=== PATIENT | male | born 1945 | race African-American/Black ===

== ENCOUNTER 2016-10-20 12:12 | Inpatient (IN) | payer OTHER, BC ==
[~2016-10-20] VITALS: Ht 175.3 cm; Wt 92.1 kg
[~2016-10-20 12:12] MED LIST: ADULT LOW DOSE81 M1 PO; ALLOPURINOL100 MG PO; AMIODARONE HCL200 MG PO; AMOX TR-K CLV1 EAC3 PO; ANTABUSE250 MG PO; ASPIR 8181 M1 PO; ASPIRIN325 MG PO; ASPIRIN81 M1 PO; ATIVAN0.5 MG PO; CARDIZEM CD,CA180 MG PO; CARDIZEM CD120 M1 PO; CARDIZEM CD180 MG PO; CELEXA10 MG PO; CELEXA20 MG PO; CITALOPRAM HBR10 MG PO; CLOPIDOGREL75 MG PO; Cozaar PO; DIOVAN HCT 11 TABLET PO; DIOVAN HCT 1601 EACH PO; ELIQUIS; ELIQUIS5 MG PO; FLEXERIL10 MG PO; FORTAMET500 MG PO; FUROSEMIDE40 MG PO; GLIPIZIDE ER2.5 MG PO; GLUCOPHAGE500 MG PO; GLUCOTROL XL5 MG PO; INDOCIN50 MG PO; K-DUR20 MEQ PO; K-Dur PO; KETOCONAZOLE120 ML TP; KLOR-CON M2020 MEQ PO; LABETALOL HCL200 MG PO; LASIX20 MG PO; LASIX40 MG PO; LEVETIRACETAM500 MG PO; LIPITOR10 MG PO; LISINOPRIL10 MG PO; LISINOPRIL2.5 MG PO; LISINOPRIL20 MG PO; LITE COAT ASPI325 M1 PO; LOPRESSOR25 MG PO; LOPRESSOR50 MG PO; LORAZEPAM0.5 MG PO; Lasix PO; Lopressor PO; METFORMIN HCL500 M1 PO; METFORMIN HCL500 MG PO; METOLAZONE2.5 MG PO; METOPROLOL TART50 MG PO; MICRO-K10 ME2 PO; NORVASC5 MG PO; Norvasc PO; POTASSIUM CHLO10 ME3 PO; ROCALTROL0.25 MCG PO; TOPROL XL50 MG PO; VICODIN,LORT1 TABLET PO; ZESTRIL2.5 MG PO; ZESTRIL20 MG PO; ZITHROMAX Z-PA250 MG PO; Zyloprim PO
[2016-10-20 12:35] LABS: POINT-OF-CARE METER ID UU13113778
[2016-10-20 12:50] LABS: ADD MIUA? YES; BILIRUBIN NEGATIVE; BLOOD NEGATIVE; COLOR YELLOW ((YELLOW)); GLUCOSE (STRIP) NEGATIVE; KETONES 5; LEUKOCYTES NEGATIVE; NITRITE NEGATIVE; PROTEIN (STRIP) NEGATIVE
[2016-10-20 13:04] LABS: BACTERIA RARE /HPF; EPITHELIAL CELLS RARE /HPF; HYALINE CASTS 30-40 /LPF; MUCUS TRACE /LPF; RED BLOOD CELLS NONE SEEN /HPF (0-5); UCUL ADDED? NO; WHITE BLOOD CELLS 0-5 /HPF (0-5)
[2016-10-20 13:13] LABS: HEMATOCRIT 43.5 % (38.0-50.0); MCH 29.8 PG (29.0-34.0); MCHC 32.9 G/DL (30.0-36.0); MCV 90.6 FL (86-99); MEAN PLAT.VOLUME 11.6 uM^3 (9.0-12.4); PLATELET COUNT 223 K/uL (156-360); RBC DIS.WIDTH-CV 18.4 % (11.8-14.6); RBC DIS.WIDTH-SD 60.5 % (39-53); WHITE BLOOD COUNT 5.7 K/uL (4.1-10.2)
[2016-10-20 13:19] LABS: CHLORIDE 95 mEq/L (99-109); POTASSIUM 3.9 mEq/L (3.7-5.4); SODIUM 140 mEq/L (136-147)
[2016-10-20 13:21] LABS: GLUCOSE 71 mg/dL (70-99)
[2016-10-20 13:22] LABS: ANION GAP 18 MEQ/L (2-14)
[2016-10-20 13:23] LABS: TOTAL BILIRUBIN 2.5 mg/dL (0.0-1.0)
[2016-10-20 13:24] LABS: ALKALINE PHOSPHATASE 116 IU/L (3-129)
[2016-10-20 13:25] LABS: GFR ESTIMATE (CALCULATED) 33 mL/min/
[2016-10-20 13:26] LABS: UREA NITROGEN (BUN) 33 mg/dL (9-23)
[2016-10-20 13:44] LABS: DIGOXIN 2.4 ng/mL (0.8-2.0)
[2016-10-20 14:02] LABS: INTER. NORMALIZED RATIO 1.5; PTT 34.8 (25-32)
[2016-10-20 14:10] LABS: LIPASE 20 U/L (1.0-51.0)
[2016-10-20 14:13] LABS: TROP-I INTERPRETATION POSITIVE; TROPONIN-I 0.62 ng/mL (0.0-0.30)
[2016-10-20] MEDS ORDERED: DIGITEK125 MC2 PO (15:33)
[2016-10-20] MEDS ORDERED: K-DUR20 MEQ PO (15:33)
[2016-10-20] MEDS ORDERED: METOLAZONE5 MG PO (15:34)
[2016-10-20] MEDS ORDERED: AMIODARONE HCL200 MG PO (15:34)
[2016-10-20] MEDS ORDERED: PLAVIX75 MG PO (15:35)
[2016-10-20 17:38] VITALS: BP 128/70
[2016-10-20 19:06] LABS: TROP-I INTERPRETATION POSITIVE; TROPONIN-I 0.73 ng/mL (0.0-0.30)
[2016-10-20 20:45] VITALS: BP 100/55
[2016-10-20 23:33] VITALS: BP 105/65
[2016-10-21 01:22] LABS: TROP-I INTERPRETATION POSITIVE; TROPONIN-I 0.64 ng/mL (0.0-0.30)
[2016-10-21 05:07] VITALS: BP 95/51
[2016-10-21 06:44] LABS: HEMATOCRIT 38.9 % (38.0-50.0); MCH 29.5 PG (29.0-34.0); MCHC 32.9 G/DL (30.0-36.0); MCV 89.6 FL (86-99); MEAN PLAT.VOLUME 11.3 uM^3 (9.0-12.4); PLATELET COUNT 183 K/uL (156-360); RBC DIS.WIDTH-CV 18.1 % (11.8-14.6); RBC DIS.WIDTH-SD 60.5 % (39-53); RED BLOOD COUNT 4.34 M/uL (4.00-5.50); WHITE BLOOD COUNT 6.1 K/uL (4.1-10.2)
[2016-10-21 07:08] LABS: ALKALINE PHOSPHATASE 93 IU/L (3-129); ANION GAP 10 MEQ/L (2-14); CHLORIDE 96 MEQ/L (99-109); GFR ESTIMATE (CALCULATED) 36 mL/min/; GLUCOSE 77 mg/dL (70-99); POTASSIUM 3.8 MEQ/L (3.7-5.4); SAMPLE HEMOLYSIS CHECK 0; SAMPLE ICTERIC CHECK 0; SAMPLE LIPEMIA CHECK 0; SODIUM 136 MEQ/L (136-147); TOTAL BILIRUBIN 2.1 MG/DL (0.0-1.0); UREA NITROGEN (BUN) 31 mg/dL (9-23)
[2016-10-21 07:28] VITALS: BP 102/58
[2016-10-21 07:38] LABS: POINT-OF-CARE METER ID UU13113698
[2016-10-21 09:37] LABS: Estimated Average Glucose 114 mg/dL (70-123); HEMOGLOBIN A1c (GLYCOHEMOGLOB) 5.6 % HGB (Below 5.7)
[2016-10-21] MEDS ORDERED: METOPROLOL TART50 MG PO (11:30)
[2016-10-21] MEDS ORDERED: DILTIAZEM 24HR120 MG PO (11:33)
[2016-10-21 11:40] LABS: POINT-OF-CARE METER ID UU13113698
[2016-10-21 12:00] VITALS: BP 115/68
[2016-10-21 16:06] VITALS: BP 107/63
[2016-10-21 20:00] VITALS: BP 98/56
[2016-10-21 23:55] VITALS: BP 96/51
[2016-10-22 04:00] VITALS: BP 99/53
[2016-10-22 05:52] LABS: EOSINOPHIL (%) 2.5 % (0-5); EOSINOPHIL COUNT 0.2 K/uL (0-0.3); HEMATOCRIT 36.2 % (38.0-50.0); IMMATURE GRANULOCYTE (%) 0.3 % (0.0-0.7); INSTRUMENT ABS NEUTROPHIL CT 4.1 K/uL; LYMPHOCYTE COUNT 1.5 K/uL (1.0-2.8); MCH 29.5 PG (29.0-34.0); MCHC 32.9 G/DL (30.0-36.0); MCV 89.6 FL (86-99); MEAN PLAT.VOLUME 12.4 uM^3 (9.0-12.4); MONOCYTE (%) 8.7 % (3-12); MONOCYTE COUNT 0.6 K/uL (0-0.8); NEUTROPHIL (%) 64.2 % (45-76); NEUTROPHIL COUNT 4.1 K/uL (1.8-6.4); PLATELET COUNT 191 K/uL (156-360); RBC DIS.WIDTH-CV 18.1 % (11.8-14.6); RBC DIS.WIDTH-SD 59.6 % (39-53); RED BLOOD COUNT 4.04 M/uL (4.00-5.50); WHITE BLOOD COUNT 6.3 K/uL (4.1-10.2)
[2016-10-22 06:17] LABS: ANION GAP 10 MEQ/L (2-14); CHLORIDE 94 MEQ/L (99-109); GFR ESTIMATE (CALCULATED) 34 mL/min/; GLUCOSE 87 mg/dL (70-99); SAMPLE HEMOLYSIS CHECK 0; SAMPLE ICTERIC CHECK 0; SAMPLE LIPEMIA CHECK 0; SODIUM 136 MEQ/L (136-147); UREA NITROGEN (BUN) 35 mg/dL (9-23)
[2016-10-22 07:10] VITALS: BP 109/65
[2016-10-22 12:02] VITALS: BP 101/66
[2016-10-22 12:59] LABS: DIGOXIN 2.3 ng/mL (0.8-2.0)
[2016-10-22 15:58] VITALS: BP 100/66
[2016-10-22 20:45] VITALS: BP 101/60
[2016-10-22 20:59] LABS: POINT-OF-CARE METER ID UU14174216
[2016-10-22 23:23] VITALS: BP 100/67
[2016-10-23 04:00] VITALS: BP 107/66
[2016-10-23 06:41] LABS: EOSINOPHIL COUNT 0.2 K/uL (0-0.3); IMMATURE GRANULOCYTE (%) 0.3 % (0.0-0.7); INSTRUMENT ABS NEUTROPHIL CT 4.1 K/uL; LYMPHOCYTE COUNT 1.1 K/uL (1.0-2.8); MCH 29.9 PG (29.0-34.0); MCHC 33.4 G/DL (30.0-36.0); MCV 89.5 FL (86-99); MEAN PLAT.VOLUME 12.6 uM^3 (9.0-12.4); MONOCYTE (%) 8.2 % (3-12); MONOCYTE COUNT 0.5 K/uL (0-0.8); NEUTROPHIL COUNT 4.1 K/uL (1.8-6.4); PLATELET COUNT 196 K/uL (156-360); RBC DIS.WIDTH-CV 18.2 % (11.8-14.6); RBC DIS.WIDTH-SD 59.6 % (39-53); RED BLOOD COUNT 3.91 M/uL (4.00-5.50)
[2016-10-23 07:01] LABS: ANION GAP 8 MEQ/L (2-14); CHLORIDE 96 MEQ/L (99-109); GFR ESTIMATE (CALCULATED) 33 mL/min/; GLUCOSE 86 mg/dL (70-99); POTASSIUM 3.8 MEQ/L (3.7-5.4); SAMPLE HEMOLYSIS CHECK 0; SAMPLE ICTERIC CHECK 0; SAMPLE LIPEMIA CHECK 0; SODIUM 136 MEQ/L (136-147); UREA NITROGEN (BUN) 36 mg/dL (9-23)
[2016-10-23 07:34] VITALS: BP 98/54
[2016-10-23 07:37] LABS: DIGOXIN 2.1 ng/mL (0.8-2.0)
[2016-10-23 11:36] VITALS: BP 92/64
[2016-10-23 16:19] VITALS: BP 104/57
[2016-10-23 20:28] VITALS: BP 002/65; BP 102/56
[2016-10-23 20:46] LABS: POINT-OF-CARE METER ID UU14174216
[2016-10-23 21:55] VITALS: BP 97/62
[2016-10-24] VITALS (7 sets, daily range): BP systolic 98–105; BP diastolic 59–70
[2016-10-24 07:13] LABS: EOSINOPHIL (%) 2.5 % (0-5); EOSINOPHIL COUNT 0.2 K/uL (0-0.3); HEMATOCRIT 35.3 % (38.0-50.0); IMMATURE GRANULOCYTE (%) 0.2 % (0.0-0.7); INSTRUMENT ABS NEUTROPHIL CT 4.4 K/uL; LYMPHOCYTE COUNT 1.2 K/uL (1.0-2.8); MCH 29.7 PG (29.0-34.0); MCHC 33.1 G/DL (30.0-36.0); MCV 89.6 FL (86-99); MEAN PLAT.VOLUME 12.1 uM^3 (9.0-12.4); MONOCYTE (%) 8.6 % (3-12); MONOCYTE COUNT 0.6 K/uL (0-0.8); NEUTROPHIL (%) 68.9 % (45-76); NEUTROPHIL COUNT 4.4 K/uL (1.8-6.4); PLATELET COUNT 169 K/uL (156-360); RBC DIS.WIDTH-CV 18.2 % (11.8-14.6); RBC DIS.WIDTH-SD 59.3 % (39-53); RED BLOOD COUNT 3.94 M/uL (4.00-5.50); WHITE BLOOD COUNT 6.4 K/uL (4.1-10.2)
[2016-10-24 07:37] LABS: POINT-OF-CARE METER ID UU13113698
[2016-10-24 09:05] LABS: CHLORIDE 97 mEq/L (99-109); POTASSIUM 4.2 mEq/L (3.7-5.4); SODIUM 136 mEq/L (136-147)
[2016-10-24 09:07] LABS: GLUCOSE 83 mg/dL (70-99)
[2016-10-24 09:08] LABS: ANION GAP 10 MEQ/L (2-14)
[2016-10-24 09:10] LABS: GFR ESTIMATE (CALCULATED) 30 mL/min/
[2016-10-24 09:11] LABS: UREA NITROGEN (BUN) 41 mg/dL (9-23)
[2016-10-24 12:08] LABS: POINT-OF-CARE METER ID UU13113698
[2016-10-24 16:14] LABS: POINT-OF-CARE METER ID UU13113698
[2016-10-24 22:28] LABS: POINT-OF-CARE METER ID UU13113698
[2016-10-25 04:50] VITALS: BP 107/64
[2016-10-25 07:12] LABS: EOSINOPHIL (%) 2.1 % (0-5); EOSINOPHIL COUNT 0.1 K/uL (0-0.3); HEMATOCRIT 36.6 % (38.0-50.0); IMMATURE GRANULOCYTE (%) 0.5 % (0.0-0.7); INSTRUMENT ABS NEUTROPHIL CT 4.3 K/uL; LYMPHOCYTE COUNT 1.2 K/uL (1.0-2.8); MCHC 33.3 G/DL (30.0-36.0); MCV 89.9 FL (86-99); MEAN PLAT.VOLUME 13.2 uM^3 (9.0-12.4); MONOCYTE (%) 9.1 % (3-12); MONOCYTE COUNT 0.6 K/uL (0-0.8); NEUTROPHIL (%) 68.4 % (45-76); NEUTROPHIL COUNT 4.3 K/uL (1.8-6.4); PLATELET COUNT 182 K/uL (156-360); RBC DIS.WIDTH-CV 18.4 % (11.8-14.6); RBC DIS.WIDTH-SD 60.1 % (39-53); RED BLOOD COUNT 4.07 M/uL (4.00-5.50); WHITE BLOOD COUNT 6.3 K/uL (4.1-10.2)
[2016-10-25 07:30] LABS: ANION GAP 9 MEQ/L (2-14); CHLORIDE 99 MEQ/L (99-109); GFR ESTIMATE (CALCULATED) 33 mL/min/; GLUCOSE 74 mg/dL (70-99); POTASSIUM 4.7 MEQ/L (3.7-5.4); SAMPLE HEMOLYSIS CHECK 0; SAMPLE ICTERIC CHECK 0; SAMPLE LIPEMIA CHECK 0; SODIUM 138 MEQ/L (136-147); UREA NITROGEN (BUN) 40 mg/dL (9-23)
[2016-10-25 09:17] VITALS: BP 115/70
[2016-10-25 12:11] LABS: POINT-OF-CARE METER ID UU13113698; POINT-OF-CARE USER ID 606021404
[2016-10-25 12:30] VITALS: BP 108/67
[2016-10-25 16:14] LABS: POINT-OF-CARE METER ID UU13113698; POINT-OF-CARE USER ID 606021404
[2016-10-25 16:30] VITALS: BP 107/68
[2016-10-25 20:42] VITALS: BP 121/76
[2016-10-25 21:46] LABS: POINT-OF-CARE METER ID UU13113698
[2016-10-26 00:52] VITALS: BP 126/78
[2016-10-26 04:39] VITALS: BP 104/61
[2016-10-26 05:37] LABS: EOSINOPHIL COUNT 0.1 K/uL (0-0.3); HEMATOCRIT 35.5 % (38.0-50.0); IMMATURE GRANULOCYTE (%) 0.3 % (0.0-0.7); INSTRUMENT ABS NEUTROPHIL CT 4.6 K/uL; LYMPHOCYTE COUNT 1.3 K/uL (1.0-2.8); MCH 30.2 PG (29.0-34.0); MCHC 33.8 G/DL (30.0-36.0); MCV 89.4 FL (86-99); MEAN PLAT.VOLUME 12.7 uM^3 (9.0-12.4); MONOCYTE (%) 7.4 % (3-12); MONOCYTE COUNT 0.5 K/uL (0-0.8); NEUTROPHIL (%) 70.2 % (45-76); NEUTROPHIL COUNT 4.6 K/uL (1.8-6.4); PLATELET COUNT 174 K/uL (156-360); RBC DIS.WIDTH-CV 18.3 % (11.8-14.6); RBC DIS.WIDTH-SD 59.9 % (39-53); RED BLOOD COUNT 3.97 M/uL (4.00-5.50); WHITE BLOOD COUNT 6.5 K/uL (4.1-10.2)
[2016-10-26 07:24] LABS: ANION GAP 9 MEQ/L (2-14); CHLORIDE 100 MEQ/L (99-109); GFR ESTIMATE (CALCULATED) 34 mL/min/; GLUCOSE 84 mg/dL (70-99); POTASSIUM 4.7 MEQ/L (3.7-5.4); SAMPLE HEMOLYSIS CHECK 0; SAMPLE ICTERIC CHECK 0; SAMPLE LIPEMIA CHECK 0; SODIUM 137 MEQ/L (136-147); UREA NITROGEN (BUN) 42 mg/dL (9-23)
[2016-10-26 07:40] LABS: DIGOXIN 1.5 ng/mL (0.8-2.0)
[2016-10-26 07:47] VITALS: BP 123/72
[2016-10-26 08:21] LABS: POINT-OF-CARE METER ID UU13113698
[2016-10-26 11:40] VITALS: BP 131/80
[2016-10-26 13:07] LABS: POINT-OF-CARE METER ID UU13113698
[2016-10-26 15:47] VITALS: BP 130/79
[2016-10-26 17:56] LABS: POINT-OF-CARE METER ID UU13113698
[2016-10-26 19:45] VITALS: BP 112/70
[2016-10-26 21:45] LABS: POINT-OF-CARE METER ID UU13113698
[2016-10-27] VITALS: BP 92/50
[2016-10-27 04:00] VITALS: BP 101/60
[2016-10-27 07:32] LABS: HEMATOCRIT 34.6 % (38.0-50.0); MCH 29.8 PG (29.0-34.0); MCHC 33.2 G/DL (30.0-36.0); MCV 89.6 FL (86-99); MEAN PLAT.VOLUME 12.5 uM^3 (9.0-12.4); PLATELET COUNT 176 K/uL (156-360); RBC DIS.WIDTH-CV 18.5 % (11.8-14.6); RBC DIS.WIDTH-SD 60.2 % (39-53); RED BLOOD COUNT 3.86 M/uL (4.00-5.50); WHITE BLOOD COUNT 6.5 K/uL (4.1-10.2)
[2016-10-27 07:38] LABS: ANION GAP 9 MEQ/L (2-14); CHLORIDE 102 MEQ/L (99-109); GFR ESTIMATE (CALCULATED) 38 mL/min/; GLUCOSE 78 mg/dL (70-99); POTASSIUM 5.2 MEQ/L (3.7-5.4); SAMPLE HEMOLYSIS CHECK 0; SAMPLE ICTERIC CHECK 0; SAMPLE LIPEMIA CHECK 0; SODIUM 139 MEQ/L (136-147); UREA NITROGEN (BUN) 42 mg/dL (9-23)
[2016-10-27 08:13] LABS: POINT-OF-CARE METER ID UU13113807
[2016-10-27 08:25] VITALS: BP 108/70
[2016-10-27] MEDS ORDERED: ASPIR-LOW81 MG PO (09:59)
[2016-10-27 13:11] VITALS: BP 99/58
[2016-10-27 13:16] LABS: POINT-OF-CARE METER ID UU13113807
== END 2016-10-27 14:18 | disposition home or self-care (01) | DRG 683 ==
LOC: EME 12:12 → EDOF 15:30 → 4EAST 15:30 → 4SOUTH 10-23 21:43
PROVIDERS: Hospitalist; Internal Medicine; Nurse Practitioner Family; Physician Assistant; Physician Assistant Medical
DX: N17.9 Acute kidney failure, unspecified (principal); E86.0 Dehydration; I42.8 Other cardiomyopathies; F01.50 Vascular dementia, unspecified severity, without behavioral disturbance, psychotic disturbance, mood disturbance, and anxiety; E11.22 Type 2 diabetes mellitus with diabetic chronic kidney disease; I12.9 Hypertensive chronic kidney disease with stage 1 through stage 4 chronic kidney disease, or unspecified chronic kidney disease; I25.10 Atherosclerotic heart disease of native coronary artery without angina pectoris; R62.7 Adult failure to thrive; I48.91 Unspecified atrial fibrillation; E78.5 Hyperlipidemia, unspecified; E86.1 Hypovolemia; N18.9 Chronic kidney disease, unspecified; I50.9 Heart failure, unspecified; F32.9 Major depressive disorder, single episode, unspecified; I25.2 Old myocardial infarction; R79.89 Other specified abnormal findings of blood chemistry; Z86.73 Personal history of transient ischemic attack (TIA), and cerebral infarction without residual deficits
CPT/HCPCS: 71020; 80048; 80053; 80162; 81003; 82948; 83036; 83690; 84484; 85025; 85027; 85610; 85730; 93005; 93306; 99281; 99285; J1815; J2405; J7030

== ENCOUNTER 2016-11-22 09:33 | Inpatient (IN) | payer OTHER, BC ==
[2016-11-22] VITALS (8 sets, daily range): BP systolic 90–105; BP diastolic 62–78
[~2016-11-22] VITALS: Ht 170.2 cm; Wt 95.4 kg
[~2016-11-22 09:33] MED LIST changes: +ASPIR-LOW81 MG PO; +DIGITEK125 MC2 PO; +DILTIAZEM 24HR120 MG PO; +METOLAZONE5 MG PO; +PLAVIX75 MG PO
[2016-11-22 10:21] LABS: ANION GAP 21 MEQ/L (2-14); CHLORIDE 107 mEq/L (99-109); CREATININE 5.6 mg/dL (0.6-1.3); GLUCOSE 72 mg/dL (70-99); ISTAT DEVICE 359068; POTASSIUM > 6.0 mEq/L (3.7-5.4); SODIUM 135 mEq/L (136-147); UREA NITROGEN (BUN) 74 mg/dL (9-23)
[2016-11-22 10:43] LABS: EOSINOPHIL (%) 0 % (0-5); HEMATOCRIT 39.9 % (38.0-50.0); IMMATURE GRANULOCYTE (%) 0.5 % (0.0-0.7); IMMATURE GRANULOCYTE COUNT 0.1 K/uL; INSTRUMENT ABS NEUTROPHIL CT 8.1 K/uL; LYMPHOCYTE COUNT 0.8 K/uL (1.0-2.8); MCH 30.9 PG (29.0-34.0); MCHC 34.3 G/DL (30.0-36.0); MCV 90.1 FL (86-99); MONOCYTE (%) 5.9 % (3-12); MONOCYTE COUNT 0.6 K/uL (0-0.8); NEUTROPHIL (%) 85.1 % (45-76); NEUTROPHIL COUNT 8.1 K/uL (1.8-6.4); NRBC (%) 0.7 /100 WBC (0-0); RBC DIS.WIDTH-CV 18.8 % (11.8-14.6); RBC DIS.WIDTH-SD 60.7 % (39-53); RED BLOOD COUNT 4.43 M/uL (4.00-5.50)
[2016-11-22 10:44] LABS: WHITE BLOOD COUNT 9.5 K/uL (4.1-10.2)
[2016-11-22 10:45] LABS: CHLORIDE 106 mEq/L (99-109); SODIUM 136 mEq/L (136-147)
[2016-11-22 10:48] LABS: GLUCOSE 72 mg/dL (70-99)
[2016-11-22 10:49] LABS: ANION GAP 18 MEQ/L (2-14); TOTAL BILIRUBIN 5.8 mg/dL (0.0-1.0)
[2016-11-22 10:51] LABS: ALKALINE PHOSPHATASE 171 IU/L (3-129); GFR ESTIMATE (CALCULATED) 14 mL/min/
[2016-11-22 10:52] LABS: UREA NITROGEN (BUN) 69 mg/dL (9-23)
[2016-11-22 11:00] LABS: DIGOXIN < 0.3 ng/mL (0.8-2.0); POTASSIUM 7.4 mEq/L (3.7-5.4)
[2016-11-22 11:03] LABS: TROP-I INTERPRETATION POSITIVE; TROPONIN-I 0.64 ng/mL (0.0-0.30)
[2016-11-22 11:50] LABS: PLATELET COUNT 201 K/uL (156-360)
[2016-11-22 11:53] LABS: MEAN PLAT.VOLUME 10.5 uM^3 (9.0-12.4)
[2016-11-22 12:10] LABS: PROTHROMBIN TIME 42.2 (9.2-11.2); PTT 42.6 (25-32)
[2016-11-22] MEDS ORDERED: LO-DOSE ASPIRIN81 M2 PO (12:42)
[2016-11-22] MEDS ORDERED: NEPHRO-VITE,1 TABLET PO (12:43)
[2016-11-22] MEDS ORDERED: WELLBUTRIN XL150 MG PO (12:44)
[2016-11-22] MEDS ORDERED: VITAMIN D2000 UNI1 PO (12:44)
[2016-11-22 20:09] LABS: INTER. NORMALIZED RATIO 3.7; PROTHROMBIN TIME 39.2 (9.2-11.2); PTT 49.2 (25-32)
[2016-11-22 20:13] LABS: POINT-OF-CARE METER ID UU14162636
[2016-11-22 20:24] LABS: METH RESISTANT S AUREUS PCR POSITIVE (NEGATIVE)
[2016-11-22 20:26] LABS: PROBE CHECK PASS
[2016-11-22 21:42] LABS: ANION GAP 12 MEQ/L (2-14); CHLORIDE 101 MEQ/L (99-109); POTASSIUM 5.3 MEQ/L (3.7-5.4); SAMPLE HEMOLYSIS CHECK 0; SAMPLE ICTERIC CHECK 1; SAMPLE LIPEMIA CHECK 0; SODIUM 136 MEQ/L (136-147)
[2016-11-22 21:47] LABS: UREA NITROGEN (BUN) 48 mg/dL (9-23)
[2016-11-22 22:17] LABS: GLUCOSE 91 mg/dL (70-99)
[2016-11-22 22:18] LABS: GFR ESTIMATE (CALCULATED) 20 mL/min/
[2016-11-23] VITALS (24 sets, daily range): BP systolic 82–109; BP diastolic 54–81
[2016-11-23 06:21] LABS: EOSINOPHIL (%) 0.4 % (0-5); HEMATOCRIT 31.2 % (38.0-50.0); IMMATURE GRANULOCYTE (%) 0.4 % (0.0-0.7); INSTRUMENT ABS NEUTROPHIL CT 6.2 K/uL; LYMPHOCYTE COUNT 0.9 K/uL (1.0-2.8); MCH 30.2 PG (29.0-34.0); MCHC 34.3 G/DL (30.0-36.0); MCV 88.1 FL (86-99); MEAN PLAT.VOLUME 11.1 uM^3 (9.0-12.4); MONOCYTE (%) 5.7 % (3-12); MONOCYTE COUNT 0.4 K/uL (0-0.8); NEUTROPHIL (%) 81.8 % (45-76); NEUTROPHIL COUNT 6.2 K/uL (1.8-6.4); NRBC (%) 0.3 /100 WBC (0-0); PLATELET COUNT 198 K/uL (156-360); RBC DIS.WIDTH-CV 18.5 % (11.8-14.6); RBC DIS.WIDTH-SD 58.3 % (39-53); WHITE BLOOD COUNT 7.6 K/uL (4.1-10.2)
[2016-11-23 06:22] LABS: ANION GAP 12 MEQ/L (2-14); CHLORIDE 101 MEQ/L (99-109); GFR ESTIMATE (CALCULATED) 18 mL/min/; GLUCOSE 78 mg/dL (70-99); POTASSIUM 5.1 MEQ/L (3.7-5.4); SAMPLE HEMOLYSIS CHECK 0; SAMPLE ICTERIC CHECK 1; SAMPLE LIPEMIA CHECK 0; SODIUM 138 MEQ/L (136-147); UREA NITROGEN (BUN) 52 mg/dL (9-23)
[2016-11-23 06:36] LABS: RED BLOOD COUNT 3.54 M/uL (4.00-5.50)
[2016-11-23 08:20] LABS: POINT-OF-CARE METER ID UU14174217
[2016-11-23 09:58] LABS: ALKALINE PHOSPHATASE 133 IU/L (3-129)
[2016-11-23 10:06] LABS: ANTI-HEPATITIS B CORE (TOTAL) Nonreactive; HBCT INDEX 0.04
[2016-11-23 10:14] LABS: AHBS INDEX 0.15; HEPATITIS B SURFACE ANTIBODY Nonreactive; HPCA INDEX 0.08
[2016-11-23 15:23] LABS: POINT-OF-CARE METER ID UU14174217
[2016-11-23 22:56] LABS: POINT-OF-CARE METER ID UU14174217
[2016-11-24] VITALS (20 sets, daily range): BP systolic 82–105; BP diastolic 58–75
[2016-11-24 07:05] LABS: EOSINOPHIL (%) 0.6 % (0-5); HEMATOCRIT 30.7 % (38.0-50.0); IMMATURE GRANULOCYTE (%) 0.5 % (0.0-0.7); INSTRUMENT ABS NEUTROPHIL CT 5.4 K/uL; LYMPHOCYTE COUNT 0.7 K/uL (1.0-2.8); MCH 29.9 PG (29.0-34.0); MCHC 33.2 G/DL (30.0-36.0); MEAN PLAT.VOLUME 10.6 uM^3 (9.0-12.4); MONOCYTE (%) 6.2 % (3-12); MONOCYTE COUNT 0.4 K/uL (0-0.8); NEUTROPHIL (%) 82.4 % (45-76); NEUTROPHIL COUNT 5.4 K/uL (1.8-6.4); NRBC (%) 0.3 /100 WBC (0-0); PLATELET COUNT 176 K/uL (156-360); RBC DIS.WIDTH-CV 18.7 % (11.8-14.6); RBC DIS.WIDTH-SD 61.1 % (39-53); RED BLOOD COUNT 3.41 M/uL (4.00-5.50); WHITE BLOOD COUNT 6.6 K/uL (4.1-10.2)
[2016-11-24 07:17] LABS: ANION GAP 13 MEQ/L (2-14); CHLORIDE 102 MEQ/L (99-109); POTASSIUM 4.5 MEQ/L (3.7-5.4); SAMPLE HEMOLYSIS CHECK 0; SAMPLE ICTERIC CHECK 1; SAMPLE LIPEMIA CHECK 0; SODIUM 137 MEQ/L (136-147)
[2016-11-24 07:23] LABS: GFR ESTIMATE (CALCULATED) 22 mL/min/; GLUCOSE 82 mg/dL (70-99); UREA NITROGEN (BUN) 37 mg/dL (9-23)
[2016-11-24 07:50] LABS: PTT 34.3 (25-32)
[2016-11-24 08:12] LABS: INTER. NORMALIZED RATIO 1.5; PROTHROMBIN TIME 15.4 (9.2-11.2)
[2016-11-24 12:06] LABS: POINT-OF-CARE METER ID UU14174217
[2016-11-24 17:35] LABS: POINT-OF-CARE METER ID UU13113803
[2016-11-24 21:27] LABS: POINT-OF-CARE METER ID UU13113803
[2016-11-25] VITALS (13 sets, daily range): BP systolic 85–107; BP diastolic 61–74
[2016-11-25 05:57] LABS: INTER. NORMALIZED RATIO 1.5; PROTHROMBIN TIME 15.1 (9.2-11.2); PTT 36.7 (25-32)
[2016-11-25 06:40] LABS: ANION GAP 11 MEQ/L (2-14); CHLORIDE 100 MEQ/L (99-109); GFR ESTIMATE (CALCULATED) 18 mL/min/; POTASSIUM 3.9 MEQ/L (3.7-5.4); SAMPLE HEMOLYSIS CHECK 0; SAMPLE ICTERIC CHECK 1; SAMPLE LIPEMIA CHECK 0; SODIUM 137 MEQ/L (136-147); UREA NITROGEN (BUN) 46 mg/dL (9-23)
[2016-11-25 06:41] LABS: GLUCOSE 115 mg/dL (70-99)
[2016-11-26] VITALS (9 sets, daily range): BP systolic 88–110; BP diastolic 59–69
[2016-11-26 05:57] LABS: INTER. NORMALIZED RATIO 1.4; PROTHROMBIN TIME 14.6 (9.2-11.2); PTT 35.9 (25-32)
[2016-11-26 06:13] LABS: ANION GAP 11 MEQ/L (2-14); CHLORIDE 101 MEQ/L (99-109); GFR ESTIMATE (CALCULATED) 23 mL/min/; GLUCOSE 94 mg/dL (70-99); POTASSIUM 3.6 MEQ/L (3.7-5.4); SAMPLE HEMOLYSIS CHECK 0; SAMPLE ICTERIC CHECK 1; SAMPLE LIPEMIA CHECK 0; SODIUM 137 MEQ/L (136-147); UREA NITROGEN (BUN) 31 mg/dL (9-23)
[2016-11-26 07:58] LABS: HEMATOCRIT 29.8 % (38.0-50.0); MCH 30.1 PG (29.0-34.0); MCHC 33.9 G/DL (30.0-36.0); MCV 88.7 FL (86-99); MEAN PLAT.VOLUME 11.2 uM^3 (9.0-12.4); PLATELET COUNT 179 K/uL (156-360); RBC DIS.WIDTH-CV 18.5 % (11.8-14.6); RBC DIS.WIDTH-SD 58.8 % (39-53); RED BLOOD COUNT 3.36 M/uL (4.00-5.50); WHITE BLOOD COUNT 6.8 K/uL (4.1-10.2)
[2016-11-26 17:07] LABS: POINT-OF-CARE METER ID UU13113819
[2016-11-26 23:22] LABS: POINT-OF-CARE METER ID UU14188625
[2016-11-27] VITALS: BP 116/68
[2016-11-27 03:50] VITALS: BP 118/60
[2016-11-27 06:58] LABS: INTER. NORMALIZED RATIO 1.4; PROTHROMBIN TIME 14.2 (9.2-11.2); PTT 33.2 (25-32)
[2016-11-27 07:13] LABS: ANION GAP 12 MEQ/L (2-14); CHLORIDE 100 MEQ/L (99-109); GFR ESTIMATE (CALCULATED) 20 mL/min/; GLUCOSE 122 mg/dL (70-99); POTASSIUM 3.4 MEQ/L (3.7-5.4); SAMPLE HEMOLYSIS CHECK 0; SAMPLE ICTERIC CHECK 1; SAMPLE LIPEMIA CHECK 0; SODIUM 137 MEQ/L (136-147); UREA NITROGEN (BUN) 38 mg/dL (9-23)
[2016-11-27 07:31] LABS: EOSINOPHIL (%) 1.1 % (0-5); EOSINOPHIL COUNT 0.1 K/uL (0-0.3); IMMATURE GRANULOCYTE (%) 0.4 % (0.0-0.7); LYMPHOCYTE COUNT 0.6 K/uL (1.0-2.8); MCH 29.9 PG (29.0-34.0); MCHC 34.1 G/DL (30.0-36.0); MCV 87.9 FL (86-99); MONOCYTE (%) 7.4 % (3-12); MONOCYTE COUNT 0.5 K/uL (0-0.8); NEUTROPHIL (%) 82.2 % (45-76); RBC DIS.WIDTH-CV 18.2 % (11.8-14.6); RBC DIS.WIDTH-SD 58.4 % (39-53); RED BLOOD COUNT 3.64 M/uL (4.00-5.50); WHITE BLOOD COUNT 7.3 K/uL (4.1-10.2)
[2016-11-27 07:55] VITALS: BP 139/75
[2016-11-27 08:28] LABS: MEAN PLAT.VOLUME 11.9 uM^3 (9.0-12.4); PLATELET COUNT 146 K/uL (156-360)
[2016-11-27 16:13] VITALS: BP 106/64
[2016-11-27 17:04] LABS: POINT-OF-CARE METER ID UU14188625
[2016-11-27 20:27] VITALS: BP 84/53
[2016-11-27 23:36] VITALS: BP 101/66; BP 131/64
[2016-11-28 04:11] VITALS: BP 97/54
[2016-11-28 08:04] VITALS: BP 88/55
[2016-11-28 11:29] VITALS: BP 89/61
[2016-11-28 16:07] VITALS: BP 124/57
[2016-11-28 19:39] VITALS: BP 99/63
[2016-11-28 21:16] LABS: POINT-OF-CARE METER ID UU14188625
[2016-11-29 00:08] VITALS: BP 110/71
[2016-11-29 03:51] VITALS: BP 102/57
[2016-11-29 07:06] LABS: ANION GAP 10 MEQ/L (2-14); CHLORIDE 100 MEQ/L (99-109); GFR ESTIMATE (CALCULATED) 20 mL/min/; GLUCOSE 71 mg/dL (70-99); MAGNESIUM 2.3 mg/dl (1.3-2.7); POTASSIUM ND MEQ/L (3.7-5.4); SAMPLE HEMOLYSIS CHECK 3; SAMPLE ICTERIC CHECK 0; SAMPLE LIPEMIA CHECK 0; SODIUM 133 MEQ/L (136-147); UREA NITROGEN (BUN) 30 mg/dL (9-23)
[2016-11-29 07:21] LABS: EOSINOPHIL (%) 1.7 % (0-5); EOSINOPHIL COUNT 0.1 K/uL (0-0.3); HEMATOCRIT 30.6 % (38.0-50.0); IMMATURE GRANULOCYTE (%) 0.3 % (0.0-0.7); INSTRUMENT ABS NEUTROPHIL CT 5.4 K/uL; LYMPHOCYTE COUNT 0.9 K/uL (1.0-2.8); MCH 29.8 PG (29.0-34.0); MCHC 33.3 G/DL (30.0-36.0); MCV 89.5 FL (86-99); MONOCYTE (%) 7.2 % (3-12); MONOCYTE COUNT 0.5 K/uL (0-0.8); NEUTROPHIL (%) 77.5 % (45-76); NEUTROPHIL COUNT 5.4 K/uL (1.8-6.4); RBC DIS.WIDTH-CV 19.4 % (11.8-14.6); RBC DIS.WIDTH-SD 60.1 % (39-53); RED BLOOD COUNT 3.42 M/uL (4.00-5.50)
[2016-11-29 08:07] LABS: MEAN PLAT.VOLUME 11.5 uM^3 (9.0-12.4); PLAT.SUFFICIENCY ADEQUATE; PLATELET COUNT 142 K/uL (156-360)
[2016-11-29 08:45] VITALS: BP 100/69
[2016-11-29 09:48] LABS: POTASSIUM 3.9 MEQ/L (3.7-5.4)
[2016-11-29 12:24] VITALS: BP 90/60
[2016-11-29] MEDS ORDERED: LO-DOSE ASPIRIN81 M2 PO (13:25)
[2016-11-29] MEDS ORDERED: MIDODRINE HCL5 MG PO (13:25)
== END 2016-11-29 16:10 | DRG 682 ==
LOC: EME 09:33 → 5SOUTH 13:15 → EDOF 13:15 → 4WEST 13:15 → EDOF 14:29 → 4WEST 17:01 → 5SOUTH 11-26 17:33
PROVIDERS: Emergency Medicine; Hospitalist; Internal Medicine; Internal Medicine Nephrology; Internal Medicine Pulmonary Disease; Nurse Practitioner Family
PROC: 02HV33Z Insertion of Infusion Device into Superior Vena Cava, Percutaneous Approach (ICD-10-PCS; principal; 2016-11-22)
PROC: 5A09357 Assistance with Respiratory Ventilation, Less than 24 Consecutive Hours, Continuous Positive Airway Pressure (ICD-10-PCS; 2016-11-25)
PROC: 5A1D00Z (ICD-10-PCS; 2016-11-27)
DX: N17.0 Acute kidney failure with tubular necrosis (principal); E87.5 Hyperkalemia; I42.8 Other cardiomyopathies; Z86.73 Personal history of transient ischemic attack (TIA), and cerebral infarction without residual deficits; E11.22 Type 2 diabetes mellitus with diabetic chronic kidney disease; F01.50 Vascular dementia, unspecified severity, without behavioral disturbance, psychotic disturbance, mood disturbance, and anxiety; Z79.82 Long term (current) use of aspirin; I50.20 Unspecified systolic (congestive) heart failure; E87.2 Acidosis; E86.0 Dehydration; G93.40 Encephalopathy, unspecified; I48.2 Chronic atrial fibrillation; R56.9 Unspecified convulsions; I13.2 Hypertensive heart and chronic kidney disease with heart failure and with stage 5 chronic kidney disease, or end stage renal disease; N18.6 End stage renal disease
CPT/HCPCS: 71010; 76770; 80047; 80048; 80048 91; 80053; 80076; 80162; 82533 91; 82948; 83605; 83735; 84100; 84484; 84999; 85025; 85027; 85610; 85730; 86704; 86706; 86803; 86900; 86901; 87086; 87340; 87641; 93005; 94660; 94799; 97530 GO; 97530 GP; 99281; 99285; C1750; C1752; C9132; J0690; J1644; J1815; J2250; J2597; J3010; J7050; P9035; P9047; S0020

== ENCOUNTER 2016-12-11 06:06 | Inpatient (IN) | payer OTHER, BC ==
[~2016-12-11] VITALS: Ht 175.3 cm; Wt 99.7 kg
[~2016-12-11 06:06] MED LIST changes: +LO-DOSE ASPIRIN81 M2 PO; +MIDODRINE HCL5 MG PO; +NEPHRO-VITE,1 TABLET PO; +VITAMIN D2000 UNI1 PO; +WELLBUTRIN XL150 MG PO
[2016-12-11 07:19] LABS: EOSINOPHIL (%) 0 % (0-5); HEMATOCRIT 27.9 % (38.0-50.0); IMMATURE GRANULOCYTE (%) 0.3 % (0.0-0.7); INSTRUMENT ABS NEUTROPHIL CT 5.8 K/uL; LYMPHOCYTE COUNT 0.7 K/uL (1.0-2.8); MCH 31.1 PG (29.0-34.0); MCHC 34.4 G/DL (30.0-36.0); MCV 90.3 FL (86-99); MEAN PLAT.VOLUME 10.9 uM^3 (9.0-12.4); MONOCYTE (%) 6.9 % (3-12); MONOCYTE COUNT 0.5 K/uL (0-0.8); NEUTROPHIL (%) 83.2 % (45-76); NEUTROPHIL COUNT 5.8 K/uL (1.8-6.4); NRBC (%) 0.3 /100 WBC (0-0); PLATELET COUNT 173 K/uL (156-360); RBC DIS.WIDTH-CV 18.9 % (11.8-14.6); RBC DIS.WIDTH-SD 59.2 % (39-53); RED BLOOD COUNT 3.09 M/uL (4.00-5.50)
[2016-12-11 07:30] LABS: INTER. NORMALIZED RATIO 2.2; PTT 37.5 (25-32)
[2016-12-11 07:45] LABS: PROTHROMBIN TIME 23.1 (9.2-11.2)
[2016-12-11 08:08] LABS: ANION GAP 14 MEQ/L (2-14); CHLORIDE 96 MEQ/L (99-109); POTASSIUM 4.3 MEQ/L (3.7-5.4); SAMPLE HEMOLYSIS CHECK 0; SAMPLE ICTERIC CHECK 1; SAMPLE LIPEMIA CHECK 0; SODIUM 137 MEQ/L (136-147); TOTAL BILIRUBIN 4.2 MG/DL (0.0-1.0)
[2016-12-11 08:13] LABS: TROP-I INTERPRETATION INDETERMINATE; TROPONIN-I 0.39 ng/mL (0.0-0.30)
[2016-12-11 08:14] LABS: ALKALINE PHOSPHATASE 95 IU/L (3-129); GFR ESTIMATE (CALCULATED) 15 mL/min/; GLUCOSE 70 mg/dL (70-99); HDL CHOLESTEROL 38 MG/DL (Desirable>=40); LDL CHOLESTEROL 25 mg/dL (Desirable<100); NON-HDL CHOLESTEROL 37 mg/dL (Desirable<160); TOTAL CHOLESTEROL 75 mg/dL (Desirable<200); TRIGLYCERIDES 62 MG/DL (Normal: <150); UREA NITROGEN (BUN) 26 mg/dL (9-23)
[2016-12-11 08:52] LABS: Estimated Average Glucose 103 mg/dL (70-123); HEMOGLOBIN A1c (GLYCOHEMOGLOB) 5.2 % HGB (Below 5.7)
[2016-12-11 11:15] VITALS: BP 122/82
[2016-12-11 11:32] LABS: POINT-OF-CARE METER ID UU13113831
[2016-12-11 12:23] LABS: POINT-OF-CARE METER ID UU13113831
[2016-12-11 20:00] VITALS: BP 131/83
[2016-12-11 20:18] LABS: POINT-OF-CARE METER ID UU13113831
[2016-12-11 20:18] LABS: POINT-OF-CARE METER ID UU13113831
[2016-12-11 22:18] LABS: POINT-OF-CARE METER ID UU13113700
[2016-12-11] MEDS ORDERED: MICRO-K10 ME2 PO (23:05)
[2016-12-11] MEDS ORDERED: FUROSEMIDE20 MG PO (23:08)
[2016-12-11 23:31] LABS: METH RESISTANT S AUREUS PCR POSITIVE (NEGATIVE)
[2016-12-11 23:40] LABS: PROBE CHECK PASS
[2016-12-12] VITALS (7 sets, daily range): BP systolic 101–134; BP diastolic 57–90
[2016-12-12 03:24] LABS: POINT-OF-CARE METER ID UU13113831
[2016-12-12 07:27] LABS: HEMATOCRIT 29.1 % (38.0-50.0); MCV 91.2 FL (86-99); MEAN PLAT.VOLUME 10.6 uM^3 (9.0-12.4); NRBC (%) 0.3 /100 WBC (0-0); PLATELET COUNT 222 K/uL (156-360); RBC DIS.WIDTH-CV 19.3 % (11.8-14.6); RBC DIS.WIDTH-SD 60.6 % (39-53); RED BLOOD COUNT 3.19 M/uL (4.00-5.50)
[2016-12-12 07:35] LABS: INTER. NORMALIZED RATIO 1.8; PROTHROMBIN TIME 18.7 (9.2-11.2); PTT 37.6 (25-32)
[2016-12-12 08:15] LABS: POINT-OF-CARE METER ID UU13113831
[2016-12-12 12:13] LABS: POINT-OF-CARE METER ID UU13113831
[2016-12-12 12:25] LABS: ALKALINE PHOSPHATASE 91 IU/L (3-129); ANION GAP 12 MEQ/L (2-14); CHLORIDE 95 MEQ/L (99-109); GFR ESTIMATE (CALCULATED) 23 mL/min/; GLUCOSE 115 mg/dL (70-99); POTASSIUM 3.7 MEQ/L (3.7-5.4); SAMPLE HEMOLYSIS CHECK 0; SAMPLE ICTERIC CHECK 1; SAMPLE LIPEMIA CHECK 0; SODIUM 136 MEQ/L (136-147); TOTAL BILIRUBIN 4.2 MG/DL (0.0-1.0); UREA NITROGEN (BUN) 16 mg/dL (9-23)
[2016-12-12] MEDS ORDERED: WELLBUTRIN SR150 MG PO (18:37)
[2016-12-12] MEDS ORDERED: ASPIR 8181 M1 PO (18:38)
[2016-12-12 19:10] LABS: TROP-I INTERPRETATION INDETERMINATE; TROPONIN-I 0.49 ng/mL (0.0-0.30)
[2016-12-13 03:25] VITALS: BP 120/67
[2016-12-13 07:24] VITALS: BP 115/72
[2016-12-13 07:59] LABS: POINT-OF-CARE METER ID UU14174225
[2016-12-13 11:03] VITALS: BP 102/64
[2016-12-13 11:05] LABS: POINT-OF-CARE METER ID UU14174225
[2016-12-13 12:22] LABS: POINT-OF-CARE METER ID UU14100415
[2016-12-13 15:04] VITALS: BP 118/82
[2016-12-13 16:39] LABS: POINT-OF-CARE METER ID UU14174225
[2016-12-13 20:00] VITALS: BP 110/70
[2016-12-14] VITALS: BP 108/68
[2016-12-14 03:52] VITALS: BP 126/80
[2016-12-14 05:56] LABS: POINT-OF-CARE METER ID UU14174225
[2016-12-14 09:36] LABS: CHLORIDE 96 mEq/L (99-109); POTASSIUM 3.4 mEq/L (3.7-5.4); SODIUM 136 mEq/L (136-147)
[2016-12-14 09:37] LABS: GLUCOSE 115 mg/dL (70-99)
[2016-12-14 09:39] LABS: ANION GAP 13 MEQ/L (2-14)
[2016-12-14 09:41] LABS: GFR ESTIMATE (CALCULATED) 14 mL/min/
[2016-12-14 09:47] LABS: HEMATOCRIT 28.4 % (38.0-50.0); MCH 30.4 PG (29.0-34.0); MCHC 33.5 G/DL (30.0-36.0); NRBC (%) 0.3 /100 WBC (0-0); RBC DIS.WIDTH-CV 19.9 % (11.8-14.6); RBC DIS.WIDTH-SD 62.6 % (39-53); RED BLOOD COUNT 3.12 M/uL (4.00-5.50); WHITE BLOOD COUNT 6.2 K/uL (4.1-10.2)
[2016-12-14 09:50] LABS: UREA NITROGEN (BUN) 26 mg/dL (9-23)
[2016-12-14 11:23] LABS: MEAN PLAT.VOLUME 10.9 uM^3 (9.0-12.4); PLAT.SUFFICIENCY ADEQUATE; PLATELET COUNT 216 K/uL (156-360)
[2016-12-14 13:21] LABS: POINT-OF-CARE METER ID UU14188625
[2016-12-14 13:30] VITALS: BP 96/60
[2016-12-14 15:56] VITALS: BP 96/56
[2016-12-14 15:58] LABS: POINT-OF-CARE METER ID UU14188625
[2016-12-14 20:00] VITALS: BP 110/84
[2016-12-14 22:51] LABS: POINT-OF-CARE METER ID UU14174225
[2016-12-15] VITALS (7 sets, daily range): BP systolic 101–120; BP diastolic 71–88
[2016-12-15 08:57] LABS: CHLORIDE 100 mEq/L (99-109); SODIUM 135 mEq/L (136-147)
[2016-12-15 09:00] LABS: ANION GAP 14 MEQ/L (2-14)
[2016-12-15 09:02] LABS: GFR ESTIMATE (CALCULATED) 23 mL/min/
[2016-12-15 09:03] LABS: UREA NITROGEN (BUN) 15 mg/dL (9-23)
[2016-12-15 09:08] LABS: GLUCOSE 76 mg/dL (70-99)
[2016-12-15 12:08] LABS: HEMATOCRIT 28.9 % (38.0-50.0); MCH 31.1 PG (29.0-34.0); MCHC 34.3 G/DL (30.0-36.0); MCV 90.9 FL (86-99); MEAN PLAT.VOLUME 10.4 uM^3 (9.0-12.4); PLATELET COUNT 230 K/uL (156-360); RBC DIS.WIDTH-SD 64.3 % (39-53); RED BLOOD COUNT 3.18 M/uL (4.00-5.50); WHITE BLOOD COUNT 6.1 K/uL (4.1-10.2)
[2016-12-16 03:38] VITALS: BP 116/80
[2016-12-16 08:21] LABS: HEMATOCRIT 28.8 % (38.0-50.0); MCV 91.1 FL (86-99); MEAN PLAT.VOLUME 10.9 uM^3 (9.0-12.4); PLATELET COUNT 252 K/uL (156-360); RBC DIS.WIDTH-SD 65.9 % (39-53); RED BLOOD COUNT 3.16 M/uL (4.00-5.50); WHITE BLOOD COUNT 6.1 K/uL (4.1-10.2)
[2016-12-16 08:37] LABS: CHLORIDE 98 mEq/L (99-109); POTASSIUM 3.6 mEq/L (3.7-5.4); SODIUM 137 mEq/L (136-147)
[2016-12-16 08:39] LABS: GLUCOSE 67 mg/dL (70-99)
[2016-12-16 08:40] LABS: ANION GAP 13 MEQ/L (2-14)
[2016-12-16 08:43] LABS: GFR ESTIMATE (CALCULATED) 17 mL/min/; UREA NITROGEN (BUN) 19 mg/dL (9-23)
[2016-12-16] MEDS ORDERED: ELIQUIS2.5 MG PO (13:21)
[2016-12-16 16:14] LABS: INTER. NORMALIZED RATIO 1.6; PROTHROMBIN TIME 16.5 (9.2-11.2); PTT 36.3 (25-32)
[2016-12-16 16:45] VITALS: BP 120/65
[2016-12-16 19:36] VITALS: BP 99/76
[2016-12-16 23:49] VITALS: BP 134/95
[2016-12-17 04:02] VITALS: BP 134/87
[2016-12-17 05:53] LABS: HEMATOCRIT 30.3 % (38.0-50.0); MCH 30.9 PG (29.0-34.0); MCHC 33.7 G/DL (30.0-36.0); MCV 91.8 FL (86-99); MEAN PLAT.VOLUME 10.3 uM^3 (9.0-12.4); PLATELET COUNT 267 K/uL (156-360); RBC DIS.WIDTH-CV 20.1 % (11.8-14.6); WHITE BLOOD COUNT 7.1 K/uL (4.1-10.2)
[2016-12-17 06:01] LABS: EOSINOPHIL (%) 0.7 % (0-5); EOSINOPHIL COUNT 0.1 K/uL (0-0.3); IMMATURE GRANULOCYTE (%) 0.4 % (0.0-0.7); INSTRUMENT ABS NEUTROPHIL CT 5.7 K/uL; LYMPHOCYTE COUNT 0.8 K/uL (1.0-2.8); MONOCYTE (%) 7.7 % (3-12); MONOCYTE COUNT 0.6 K/uL (0-0.8); NEUTROPHIL (%) 80.4 % (45-76); NEUTROPHIL COUNT 5.7 K/uL (1.8-6.4)
[2016-12-17 06:13] LABS: CHLORIDE 98 mEq/L (99-109); SODIUM 138 mEq/L (136-147)
[2016-12-17 06:14] LABS: GLUCOSE 83 mg/dL (70-99)
[2016-12-17 06:16] LABS: ANION GAP 14 MEQ/L (2-14)
[2016-12-17 06:18] LABS: GFR ESTIMATE (CALCULATED) 23 mL/min/
[2016-12-17 06:19] LABS: UREA NITROGEN (BUN) 14 mg/dL (9-23)
[2016-12-17 08:15] VITALS: BP 100/64
[2016-12-17 11:58] VITALS: BP 106/70
== END 2016-12-17 13:15 | DRG 69 ==
LOC: EME → EDBD 06:06 → 5WEST 09:31 → EDOF 09:31 → 5WEST 10:54 → 5SOUTH 12-12 14:08
PROVIDERS: Emergency Medicine; Hospitalist; Internal Medicine; Physician Assistant; Physician Assistant Medical; Student in an Organized Health Care Education/Training Program
PROC: 5A1D60Z (ICD-10-PCS; principal; 2016-12-11)
DX: G45.9 Transient cerebral ischemic attack, unspecified (principal); G93.41 Metabolic encephalopathy; I13.2 Hypertensive heart and chronic kidney disease with heart failure and with stage 5 chronic kidney disease, or end stage renal disease; I50.33 Acute on chronic diastolic (congestive) heart failure; N18.6 End stage renal disease; R04.2 Hemoptysis; D68.32 Hemorrhagic disorder due to extrinsic circulating anticoagulants; T45.515A Adverse effect of anticoagulants, initial encounter; E11.22 Type 2 diabetes mellitus with diabetic chronic kidney disease; D63.1 Anemia in chronic kidney disease; Z99.2 Dependence on renal dialysis; I48.91 Unspecified atrial fibrillation; I24.8 Other forms of acute ischemic heart disease; I42.0 Dilated cardiomyopathy; F01.50 Vascular dementia, unspecified severity, without behavioral disturbance, psychotic disturbance, mood disturbance, and anxiety; J44.9 Chronic obstructive pulmonary disease, unspecified; F32.9 Major depressive disorder, single episode, unspecified; I25.10 Atherosclerotic heart disease of native coronary artery without angina pectoris; I25.2 Old myocardial infarction; G40.909 Epilepsy, unspecified, not intractable, without status epilepticus; Z66 Do not resuscitate; E87.6 Hypokalemia; M10.9 Gout, unspecified; G47.33 Obstructive sleep apnea (adult) (pediatric); I44.0 Atrioventricular block, first degree; R29.702 NIHSS score 2; F10.21 Alcohol dependence, in remission; E66.9 Obesity, unspecified; Z68.32 Body mass index [BMI] 32.0-32.9, adult; Z91.81 History of falling; Z79.01 Long term (current) use of anticoagulants; Z95.1 Presence of aortocoronary bypass graft; Z86.14 Personal history of Methicillin resistant Staphylococcus aureus infection
CPT/HCPCS: 70450; 70551; 71010; 71250; 80048; 80053; 80061; 81003; 82140; 82948; 83036; 83605; 83880; 84484; 85025; 85027; 85610; 85730; 87040; 87641; 92523 GN; 92526 GN; 93005; 93308; 93880; 99281; 99285; G0378; J0696; J1644; J7042; J7050

== ENCOUNTER 2016-12-25 13:39 | Emergency (ER) | payer OTHER, BC ==
[~2016-12-25] VITALS: Ht 175.3 cm; Wt 93.5 kg
[~2016-12-25 13:39] MED LIST changes: +ELIQUIS2.5 MG PO; +FUROSEMIDE20 MG PO; +WELLBUTRIN SR150 MG PO
[2016-12-25 14:03] LABS: EOSINOPHIL (%) 0.5 % (0-5); EOSINOPHIL COUNT 0.1 K/uL (0-0.3); HEMATOCRIT 32.9 % (38.0-50.0); IMMATURE GRANULOCYTE (%) 0.7 % (0.0-0.7); IMMATURE GRANULOCYTE COUNT 0.1 K/uL; INSTRUMENT ABS NEUTROPHIL CT 10.1 K/uL; LYMPHOCYTE COUNT 0.4 K/uL (1.0-2.8); MCH 30.9 PG (29.0-34.0); MCHC 33.1 G/DL (30.0-36.0); MCV 93.2 FL (86-99); MEAN PLAT.VOLUME 9.4 uM^3 (9.0-12.4); MONOCYTE (%) 5.2 % (3-12); MONOCYTE COUNT 0.6 K/uL (0-0.8); NEUTROPHIL (%) 89.7 % (45-76); NEUTROPHIL COUNT 10.1 K/uL (1.8-6.4); PLATELET COUNT 230 K/uL (156-360); RBC DIS.WIDTH-CV 19.7 % (11.8-14.6); RBC DIS.WIDTH-SD 66.1 % (39-53); RED BLOOD COUNT 3.53 M/uL (4.00-5.50)
[2016-12-25 14:04] LABS: WHITE BLOOD COUNT 11.2 K/uL (4.1-10.2)
[2016-12-25 14:10] LABS: INTER. NORMALIZED RATIO 1.6; PROTHROMBIN TIME 16.3 (9.2-11.2)
[2016-12-25 14:14] LABS: CHLORIDE 98 mEq/L (99-109); POTASSIUM 3.3 mEq/L (3.7-5.4); SODIUM 138 mEq/L (136-147)
[2016-12-25 14:16] LABS: GLUCOSE 110 mg/dL (70-99)
[2016-12-25 14:17] LABS: ANION GAP 8 MEQ/L (2-14)
[2016-12-25 14:20] LABS: GFR ESTIMATE (CALCULATED) 36 mL/min/; UREA NITROGEN (BUN) 12 mg/dL (9-23)
[2016-12-25 18:02] VITALS: BP 111/72
== END 2016-12-25 18:18 ==
LOC: EME 13:39
PROVIDERS: Emergency Medicine
DX: S00.03XA Contusion of scalp, initial encounter (principal); W06.XXXA Fall from bed, initial encounter; Y92.129 Unspecified place in nursing home as the place of occurrence of the external cause; I12.0 Hypertensive chronic kidney disease with stage 5 chronic kidney disease or end stage renal disease; N18.6 End stage renal disease; Z99.2 Dependence on renal dialysis; E11.22 Type 2 diabetes mellitus with diabetic chronic kidney disease; I25.2 Old myocardial infarction; F03.90 Unspecified dementia, unspecified severity, without behavioral disturbance, psychotic disturbance, mood disturbance, and anxiety; I69.351 Hemiplegia and hemiparesis following cerebral infarction affecting right dominant side; F32.9 Major depressive disorder, single episode, unspecified; I50.9 Heart failure, unspecified; M10.9 Gout, unspecified; F10.20 Alcohol dependence, uncomplicated
CPT/HCPCS: 70450; 80048; 85025; 85610; 99281; 99284

== ENCOUNTER 2017-01-02 03:50 | Emergency (ER) | payer OTHER, BC ==
[~2017-01-02] VITALS: Ht 175.3 cm; Wt 88.0 kg
[2017-01-02 07:01] VITALS: BP 103/81
== END 2017-01-02 07:43 ==
LOC: EME → EDBD 03:50 → EME 07:43
DX: S40.011A Contusion of right shoulder, initial encounter (principal); S00.93XA Contusion of unspecified part of head, initial encounter; E11.9 Type 2 diabetes mellitus without complications; F03.90 Unspecified dementia, unspecified severity, without behavioral disturbance, psychotic disturbance, mood disturbance, and anxiety; I25.2 Old myocardial infarction; W06.XXXA Fall from bed, initial encounter; I10 Essential (primary) hypertension; Z86.73 Personal history of transient ischemic attack (TIA), and cerebral infarction without residual deficits; F32.9 Major depressive disorder, single episode, unspecified
CPT/HCPCS: 70450; 71101; 72125; 73030; 99281; 99284

== ENCOUNTER → 2017-01-30 16:07 | Emergency (ER) | payer OTHER, BC ==
[~2017-01-30] VITALS: Ht 172.7 cm; Wt 96.3 kg
[2017-01-30 16:07] VITALS: BP 67/37
== END | disposition expired ==
LOC: EME 16:07
DX: I46.9 Cardiac arrest, cause unspecified (principal); Z86.73 Personal history of transient ischemic attack (TIA), and cerebral infarction without residual deficits; I25.2 Old myocardial infarction; E11.9 Type 2 diabetes mellitus without complications; I10 Essential (primary) hypertension
CPT/HCPCS: 99281; 99282